=== PATIENT | female | born 1945 | race Caucasian/White ===

== ENCOUNTER 2017-08-12 03:57 | Emergency (ER) | payer MEDICARE, BC ==
[2017-08-12] MEDS ORDERED: Ondansetron 8 MG Tab.DIS PO ONE (04:36)
--- NOTE | 2017-08-12 04:39 | EDM.PDOC ---
ED HPI GENERAL MEDICAL PROBLEM - General Chief Complaint: Chest Pain Stated Complaint: CHEST PAIN Time Seen by Provider: 08/12/17 03:57 Source of Information: Reports: Patient, EMS, Family History Limitations: Reports: No Limitations - History of Present Illness INITIAL COMMENTS - FREE TEXT/NARRATIVE: 71 y.o.w.f with HTN came to the ed because, as she went to the ed bathroom this am, she felt SOB,nauseated, chest tightness. Pt called 911. As the patient arrived here in the ed, her symptoms subsided. however, she was still nauseated , did not vomit. All her other symptoms subsided.Pt never had those symptoms before, denied any cardiac issues in the past. BP 130/64 pulse 82 temp 36.4 O2 96% on RA Onset: Today Onset Date: 08/12/17 Onset Time: 03:00 Duration: Minutes:, Intermittent Location: Reports: Chest Quality: Reports: Other (palpitations) Severity: Mild Improves with: Reports: None Worsens with: Reports: None Context: Reports: Other (palpitations at rest) Associated Symptoms: Reports: Other (nausea) Posterior neck Pain Score (Numeric/FACES): 3 - Related Data Allergies Allergy/AdvReac Type Severity Reaction Status Date / Time No Known Allergies Allergy Verified 08/12/17 05:05 Home Meds: Home Meds Aspirin [Adult Low Dose Aspirin EC] 81 mg PO DAILY 08/06/16 [History] Calcium Carb/Mag Ox/Zinc Sulf [Ifupfqw-Wdiizuzvf-Rwqi Tablet] 1 each PO DAILY [History] Cholecalciferol (Vitamin D3) [Vitamin D3] 2,000 unit PO DAILY 08/06/16 [History] Ibuprofen [Advil] 200 mg PO Q6H PRN 08/06/16 [History] Losartan [Cozaar] 25 mg PO BEDTIME 08/06/16 [History] Losartan [Cozaar] 50 mg PO DAILY 08/06/16 [History] Omeprazole 20 mg PO DAILY 08/06/16 [History] Simvastatin [Zocor] 20 mg PO BEDTIME 08/06/16 [History] Timolol Maleate [Timoptic 0.25% Ophth Soln] 1 drop EYEBOTH DAILY 08/06/16 [ History] Bimatoprost [LUMIGAN 0.01% Ophth Soln] 1 drop EYEBOTH BEDTIME 08/09/16 [History] Fish Oil/[place]-3 Fatty Acids [Fish Oil 1,000 MG] 1 tab DAILY 08/12/17 [History] Multivitamin with Minerals [Multiple Vitamin] 1 tab PO DAILY 08/12/17 [History] Past Medical History HEENT History: Reports: Cataract, Glaucoma, Other (See Below) Other HEENT History: MYOPIA OU Cardiovascular History: Reports: High Cholesterol, Hypertension Respiratory History: Reports: None Gastrointestinal History: Reports: Colon Polyp, Diverticulosis, GERD, Hiatal Hernia Other Gastrointestinal History: EPIGASTRIC PAIN Genitourinary History: Reports: Urinary Incontinence, UTI, Recurrent ROVING CARRIER History: Reports: Other OB/BYN History: Musculoskeletal History: Reports: Arthritis, Back Pain, Chronic, Neck Pain, Chronic, Other (See Below) Other Musculoskeletal History: DJD OF KNEE BILAT Neurological History: Reports: None Psychiatric History: Reports: None Endocrine/Metabolic History: Reports: Obesity/BMI 30+ Hematologic History: Reports: None Oncologic (Cancer) History: Reports: None Dermatologic History: Reports: None, Other (See Below) Other Dermatologic History: Lichen sclerosis L breast - Infectious Disease History Infectious Disease History: Reports: Chicken Pox, Measles, Mumps - Past Surgical History Head Surgeries/Procedures: Reports: None GI Surgical History: Reports: Colonoscopy Female Surgical History: Reports: Breast Biopsy, D&C, Other (See Below) Other Female Surgeries/Procedures: infected papiloma to R breast Musculoskeletal Surgical History: Reports: Knee Replacement, Other (See Below) Other Musculoskeletal Surgeries/Procedures:: bilat knee replacement Dermatological Surgical History: Reports: Skin Biopsy Social & Family History - Family History Family Medical History: Noncontributory - Tobacco Use Smoking Status *Q: Former Smoker Years of Tobacco use: 10 Used Tobacco, but Quit: Yes Month Tobacco Last Used: 30 YEARS AGO - Caffeine Use Caffeine Use: Reports: Coffee - Recreational Drug Use Recreational Drug Use: No ED ROS GENERAL - Review of Systems Review Of Systems: See Below Constitutional: Reports: No Symptoms HEENT: Reports: No Symptoms Respiratory: Reports: No Symptoms Cardiovascular: Reports: No Symptoms Endocrine: Reports: No Symptoms GI/Abdominal: Reports: Nausea : Reports: No Symptoms Musculoskeletal: Reports: No Symptoms Skin: Reports: No Symptoms Neurological: Reports: No Symptoms Psychiatric: Reports: No Symptoms Hematologic/Lymphatic: Reports: No Symptoms Immunologic: Reports: No Symptoms ED EXAM, GENERAL - Physical Exam Exam: See Below Exam Limited By: No Limitations General Appearance: Alert, WD/WN, No Apparent Distress Eye Exam: Bilateral Eye: Normal Inspection Ears: Normal External Exam Ear Exam: Bilateral Ear: Auricle Normal Nose: Normal Inspection, Normal Mucosa Throat/Mouth: Normal Inspection Head: Atraumatic, Normocephalic Neck: Normal Inspection, Supple, Non-Tender, Full Range of Motion Respiratory/Chest: No Respiratory Distress, Lungs Clear, Normal Breath Sounds Cardiovascular: Normal Peripheral Pulses, Regular Rate, Rhythm, No Edema, No Gallop, No JVD, No Murmur, No Rub Peripheral Pulses: 1+: Radial (L), Radial (R) GI/Abdominal: Normal Bowel Sounds, Soft, Non-Tender, No Organomegaly, No Distention (Female) Exam: Deferred Rectal (Female) Exam: Deferred Back Exam: Normal Inspection, Full Range of Motion Extremities: Normal Inspection, Normal Range of Motion, Non-Tender, No Pedal Edema Neurological: Alert, Oriented, CN II-XII Intact, Normal Cognition, Normal Gait Psychiatric: Normal Affect, Normal Mood Skin Exam: Warm, Dry, Intact, Normal Color, No Rash Lymphatic: No Adenopathy EKG INTERPRETATION EKG Date: 08/12/17 Time: 04:10 Rhythm: NSR Rate (Beats/Min): 78 [place]: Normal P-Wave: Present QRS: Normal ST-T: Normal QT: Normal Comparison: NA - No Prior EKG Course - Vital Signs Text/Narrative:: 71 y.o.w.f with HTN came to the ed because, as she went to the ed bathroom this am, she felt SOB,nauseated, chest tightness. Pt called 911. As the patient arrived here in the ed, her symptoms subsided. however, she was still nauseated , did not vomit. All her other symptoms subsided.Pt never had those symptoms before, denied any cardiac issues in the past. BP 130/64 pulse 82 temp 36.4 O2 96% on RA PE: WNWD WF NAD, C/O nausea, Neg PE Labs: CBC WNL Na 138 K. 3.8 Cr 1.0 BUN 23 Glc 121 UA neg trop 0.01 Imaging: Not indicated Impression: Palpitations Reexam: Pt felt fine while here in the ed. Was ambulating fine. Plan: D/C with instruction for possible Holtermonitor placement. Last Recorded V/S: Last Vital Signs Temp 36.7 C 08/12/17 03:57 Pulse 82 08/12/17 03:57 Resp 18 08/12/17 05:30 BP 158/55 H 08/12/17 05:30 Pulse Ox 95 08/12/17 05:30 Orthostatic Blood Pressure [ 158/103 Standing] Orthostatic Blood Pressure [ 164/76 Sitting] Orthostatic Blood Pressure [ 139/71 Supine] - Orders/Labs/Meds Labs: Laboratory Tests 08/12/17 08/12/17 08/12/17 Range/Units 04:15 04:15 04:15 WBC 6.8 (4.5-12.0) X10-3/uL RBC 4.31 (3.23-5.20) x10(6)uL Hgb 13.0 (11.5-15.5) g/dL Hct 37.4 (30.0-51.3) % MCV 86.8 (80-96) fL MCH 30.0 (27.7-33.6) pg MCHC 34.6 (32.2-35.4) g/dL RDW 12.3 (11.5-15.5) % Plt Count 266 (125-369) X10(3)uL MPV 8.2 (7.4-10.4) fL Neut % (Auto) 63.9 (46-82) % Lymph % (Auto) 25.8 (13-37) % [place] % (Auto) 7.4 (4-12) % Eos % (Auto) 2 (1.0-5.0) % Baso % (Auto) 1 (0-2) % Neut # (Auto) 4.4 (1.6-8.3) # Lymph # (Auto) 1.7 (0.6-5.0) # Snyder # (Auto) 0.5 (0.0-1.3) # Eos # (Auto) 0.1 (0.0-0.8) # Baso # (Auto) 0.1 (0.0-0.2) # Sodium 136 (135-145) mmol/L Potassium 3.8 (3.5-5.3) mmol/L Chloride 104 (100-110) mmol/L Carbon Dioxide 25 (23-29) mmol/L BUN 23 (8-23) mg/dL Creatinine 0.7 (0.6-1.3) mg/dL Est Cr Clr Drug Dosing 60.09 mL/min Estimated GFR (MDRD) > 60 (>60) BUN/Creatinine Ratio 32.9 H (9-20) Glucose 121 H (80-116) mg/dL Calcium 9.5 (8.6-10.2) mg/dL Troponin I < 0.01 L (0.02-0.06) NG/ML TSH, Ultra Sensitive (0.4-5.5) nlU/mL Urine Color (YELLOW) Urine Appearance (CLEAR) Urine pH (5.0-6.5) Ur Specific [place] (1.010-1.025) Urine Protein (NEGATIVE) mg/dL Urine Glucose (UA) (NEGATIVE) mg/dL Urine Ketones (NEGATIVE) mg/dL Urine Occult Blood (NEGATIVE) Urine Nitrite (NEGATIVE) Urine Bilirubin (NEGATIVE) Urine Urobilinogen (NEGATIVE) mg/dL Ur Leukocyte Esterase (NEGATIVE) Urine RBC (0) Urine WBC (0) Ur Squamous Epith Cells (NS,R,O) Urine Bacteria (NS) 08/12/17 08/12/17 Range/Units 04:15 04:50 WBC (4.5-12.0) X10-3/uL RBC (3.23-5.20) x10(6)uL Hgb (11.5-15.5) g/dL Hct (30.0-51.3) % MCV (80-96) fL MCH (27.7-33.6) pg MCHC (32.2-35.4) g/dL RDW (11.5-15.5) % Plt Count (125-369) X10(3)uL MPV (7.4-10.4) fL Neut % (Auto) (46-82) % Lymph % (Auto) (13-37) % Snyder % (Auto) (4-12) % Eos % (Auto) (1.0-5.0) % Baso % (Auto) (0-2) % Neut # (Auto) (1.6-8.3) # Lymph # (Auto) (0.6-5.0) # Snyder # (Auto) (0.0-1.3) # Eos # (Auto) (0.0-0.8) # Baso # (Auto) (0.0-0.2) # Sodium (135-145) mmol/L Potassium (3.5-5.3) mmol/L Chloride (100-110) mmol/L Carbon Dioxide (23-29) mmol/L BUN (8-23) mg/dL Creatinine (0.6-1.3) mg/dL Est Cr Clr Drug Dosing mL/min Estimated GFR (MDRD) (>60) BUN/Creatinine Ratio (9-20) Glucose (80-116) mg/dL Calcium (8.6-10.2) mg/dL Troponin I (0.02-0.06) NG/ML TSH, Ultra Sensitive 2.65 (0.4-5.5) nlU/mL Urine Color Yellow (YELLOW) Urine Appearance Clear (CLEAR) Urine pH 6.0 (5.0-6.5) Ur Specific [place] 1.010 (1.010-1.025) Urine Protein Negative (NEGATIVE) mg/dL Urine Glucose (UA) Normal (NEGATIVE) mg/dL Urine Ketones Negative (NEGATIVE) mg/dL Urine Occult Blood Negative (NEGATIVE) Urine Nitrite Negative (NEGATIVE) Urine Bilirubin Negative (NEGATIVE) Urine Urobilinogen Normal (NEGATIVE) mg/dL Ur Leukocyte Esterase Negative (NEGATIVE) Urine RBC 0-5 (0) Urine WBC 0-5 (0) Ur Squamous Epith Cells Few H (NS,R,O) Urine Bacteria Few H (NS) Meds: Medications Discontinued Medications Generic Name Dose Route Start Last Admin Trade Name [place] PRN Reason Stop Dose Admin Ondansetron HCl 8 mg 08/12/17 04:36 08/12/17 05:20 Zofran Odt PO 08/12/17 04:37 8 mg ONETIME ONE Administration Departure - Departure Time of Disposition: 05:37 Disposition: Home, Self-Care 01 Condition: Good Clinical Impression: Intermittent palpitations Instructions: Palpitations, [id number] Referrals: Balbir Ferguson MD [Primary Care Provider] - Forms: ED Department Discharge Additional Instructions: Please continue your current meds, please follow up with your primary medical doctor at clinic, please come back if your symptoms get worse acutely.
[2017-08-12 06:41] VITALS: BP 158/55
== END 2017-08-12 05:49 | disposition home or self-care (01) ==
LOC: FB.ED 03:57
DX: R00.2 Palpitations (principal); Z87.891 Personal history of nicotine dependence; I10 Essential (primary) hypertension; E78.00 Pure hypercholesterolemia, unspecified; E66.9 Obesity, unspecified; Z79.899 Other long term (current) drug therapy; Z79.82 Long term (current) use of aspirin
CPT/HCPCS: 36415; 80048; 81001; 84443; 84484; 85025; 93005; 99285; A9270; 93010; 99284

== ENCOUNTER 2019-02-21 09:23 | Day surgery (SDC) | payer MEDICARE, BC ==
[2019-02-21] MEDS ORDERED: Ondansetron 4 MG/2 ML SDV IVPUSH ONE (09:24)
[2019-02-21] MEDS ORDERED: Propofol 200 MG/20 ML SDV IV ONE (09:24)
[2019-02-21] MEDS ORDERED: Lidocaine 2% 100 MG/5 ML Syringe IVPUSH ONE (09:24)
[2019-02-21] MEDS ORDERED: Lactated Ringers 1,000 ML IV SCH (09:45)
[2019-02-21] MEDS ORDERED: Sodium Chloride 0.9% 10 ML Syringe FLUSH PRN (09:45)
--- NOTE | 2019-02-21 11:54 | PCM.OPNOTE ---
- General Post-Op/Procedure Note Date of Surgery/Procedure: 02/21/19 Operative Procedure(s): egd with bx Findings: gastritis fundic gland polyp Pre Op Diagnosis: epigastric abd pain Post-Op Diagnosis: gastritis. fundic gland polyp Primary Surgeon: Toby Plaza Anesthesia Provider: Gulshan Christopher ([facility] CRNAS) Pathology: stomach Complications: None Condition: Good Free Text/Narrative:: see dictation
[2019-02-21 12:49] VITALS: BP 141/56
--- NOTE | 2019-02-21 18:19 | OR ---
DATE OF OPERATION: 02/21/2019 SURGEON: Toby Plaza MD PROCEDURE PERFORMED: EGD with cold forceps biopsy. PREOPERATIVE DIAGNOSIS: Epigastric abdominal pain. POSTOPERATIVE DIAGNOSES: Gastritis, especially in the antrum and fundic gland hyperplasia. INDICATIONS FOR PROCEDURE: This is a 73-year-old white female who has had a history of epigastric abdominal pain for the past 2 weeks. This resulted in a 13-pound weight loss. She was offered and accepted EGD. DESCRIPTION OF OPERATION: After an excellent IV sedation was administered, bite block was inserted. Flexible endoscope was passed without difficulty down the patient's esophagus into the stomach. The stomach was insufflated, the scope passed through the pylorus to the second portion of duodenum. Following findings were noted. Duodenum unremarkable. Stomach, especially in the area of the antrum, there appeared to be some mild inflammation. Multiple biopsies were taken and along the greater curve near the cardia there was a what appeared to be a fundic gland polyp. This was biopsied as well. The esophagus was essentially unremarkable. The stomach was deflated, scope was removed. /[id number] /MODL
== END 2019-02-21 12:49 | disposition home or self-care (01) ==
LOC: FB.SDS 09:23
PROVIDERS: ATTEND Surgery
DX: K29.50 Unspecified chronic gastritis without bleeding (principal); K31.7 Polyp of stomach and duodenum; K21.9 Gastro-esophageal reflux disease without esophagitis; E78.2 Mixed hyperlipidemia; I10 Essential (primary) hypertension; M17.10 Unilateral primary osteoarthritis, unspecified knee; E66.9 Obesity, unspecified; Z68.38 Body mass index [BMI] 38.0-38.9, adult; Z87.19 Personal history of other diseases of the digestive system; Z87.891 Personal history of nicotine dependence; Z79.82 Long term (current) use of aspirin; Z79.899 Other long term (current) drug therapy
CPT/HCPCS: 00731; 43239; J2001; J2405; J2704; J7120; 88305; 88342